=== PATIENT | male | born 1965 | race Caucasian/White ===

== ENCOUNTER 2018-11-11 04:41 | Emergency (ER) | payer BC ==
[~2018-11-11] VITALS: Ht 177.8 cm; Wt 113.4 kg
[2018-11-11 04:44] VITALS: Ht 177.8 cm; Wt 113.4 kg
[2018-11-11 06:48] VITALS: BP 137/85
== END 2018-11-11 06:48 | disposition home or self-care (01) ==
LOC: ED 04:41
DX: H81.13 Benign paroxysmal vertigo, bilateral (principal); I10 Essential (primary) hypertension; Z88.0 Allergy status to penicillin
CPT/HCPCS: J8597; Q0162